=== PATIENT | male | born 1995 | race Caucasian/White ===

== ENCOUNTER 2024-09-21 13:00 | Emergency (ER) | payer BC, OTHER ==
[2024-09-21 13:09] VITALS: BP 118/68; PULSE 80; RESP 18; TEMP 97.7; BMI 29.2
== END 2024-09-21 16:00 | disposition home or self-care (01) ==
LOC: JERFT 13:00
DX: S20.211A Contusion of right front wall of thorax, initial encounter (principal); S89.91XA Unspecified injury of right lower leg, initial encounter; W01.0XXA Fall on same level from slipping, tripping and stumbling without subsequent striking against object, initial encounter; Y93.02 Activity, running
CPT/HCPCS: 71101-TC-RT-FY; 73560-TC-RT-FY; 99284-25